=== PATIENT | male | born 1965 | race Caucasian/White ===

== ENCOUNTER 2021-05-28 19:48 | Emergency (ER) | payer OTHER ==
[2021-05-28 19:56] VITALS: RESP 20; TEMP 98.9
[2021-05-28] MEDS ORDERED: CASIRIVIMAB (REGN10933) (EUA) 600 MG, IMDEVIMAB (REGN10987) (EUA) 600 MG in SODIUM CHLO... IVPB ONE (21:00)
[2021-05-28] MEDS ORDERED: SODIUM CHLORIDE 0.9% 50 ML IVPB ONE (21:00)
--- NOTE | 2021-05-28 21:20 | ED ---
General Adult HPI - General Chief complaint: Recheck/Abnormal Lab/Rx Stated complaint: Covid+ wants antibody Time Seen by Provider: 05/28/21 20:02 Source: patient, RN notes reviewed Mode of arrival: ambulatory Limitations: no limitations - History of Present Illness Initial comments: 56-year-old male presents to the emergency room for a chief complaint of Aviles virus. Patient reports that on May 20 he developed symptoms of Aviles virus. He tested positive yesterday. Patient states he has had a cough congestion and fatigue. He states that his mother also tested positive and is getting antibody infusion today. Since patient is not getting better he was hoping he could also have an antibody infusion. He is denying chest pain or shortness of breath.Patient has no other complaints at this time including shortness of breath, chest pain, abdominal pain, nausea or vomiting, headache, or visual changes. - Related Data Allergies Allergy/AdvReac Type Severity Reaction Status Date / Time No Known Allergies Allergy Verified 05/28/21 19:56 Review of Systems ROS Statement: Those systems with pertinent positive or pertinent negative responses have been documented in the HPI. ROS Other: All systems not noted in ROS Statement are negative. Past Medical History Past Medical History: No Reported History History of Any Multi-Drug Resistant Organisms: None Reported Past Surgical History: No Surgical Hx Reported Past Psychological History: No Psychological Hx Reported Smoking Status: Never smoker Past Alcohol Use History: Rare Past Drug Use History: None Reported General Exam Limitations: no limitations General appearance: alert, in no apparent distress Head exam: Present: atraumatic Eye exam: Present: normal appearance, PERRL, EOMI. Absent: scleral icterus, conjunctival injection ENT exam: Present: normal exam, mucous membranes moist Neck exam: Present: normal inspection, full ROM. Absent: tenderness Respiratory exam: Present: normal lung sounds bilaterally. Absent: respiratory distress, wheezes Cardiovascular Exam: Present: regular rate, normal rhythm, normal heart sounds GI/Abdominal exam: Present: soft, normal bowel sounds. Absent: distended, tenderness Neurological exam: Present: alert Course Vital Signs 05/28/21 19:52 Temperature 98.9 F Pulse Rate 108 H Respiratory 20 Rate Blood Pressure 162/88 O2 Sat by Pulse 96 Oximetry Medical Decision Making - Medical Decision Making Vitals are stable. Patient is well-appearing. Patient tested positive. He does not want any additional management aside from antibodies. These were given. Patient will follow up with his doctor. He will return here for any worsening symptoms. Disposition Clinical Impression: COVID-19 Disposition: HOME SELF-CARE Condition: Good Instructions (If sedation given, give patient instructions): Coronavirus Disease 2019 (COVID-19) Additional Instructions: Please follow-up with your doctor in one to 2 days. Return to the emergency room for any worsening symptoms. Is patient prescribed a controlled substance at d/c from ED?: No Referrals: Josias Bello DO [Primary Care Provider] - 1-2 days Time of Disposition: 21:20
[2021-05-28 23:04] VITALS: BP 118/84; PULSE 98
== END 2021-05-28 23:04 | disposition home or self-care (01) ==
LOC: EC 19:48
DX: U07.1 COVID-19 (principal)
CPT/HCPCS: 99283 ×2; 96365; M0243; Q0243

== ENCOUNTER 2021-10-19 07:24 | Emergency (ER) | payer BC ==
[2021-10-19 07:28] VITALS: RESP 18
[2021-10-19] MEDS ORDERED: KETOROLAC 15 MG/ML 1 ML VIAL IVP STA ×2 (07:31→08:14)
[2021-10-19] MEDS ORDERED: SODIUM CHLORIDE 0.9% 1,000 ML IV STA (07:31)
[2021-10-19] MEDS ORDERED: ONDANSETRON 4 MG/2 ML VIAL IVP STA (07:31)
[2021-10-19] MEDS ORDERED: SODIUM CHLORIDE 0.9% 500 ML 500 ML IV STA (07:31)
[2021-10-19] MEDS ORDERED: HYDROmorphone 0.5 MG/0.5 ML SYRINGE IVP STA ×2 (07:31→08:14)
--- NOTE | 2021-10-19 07:44 | ED ---
Abdominal Pain HPI - General Source: patient, RN notes reviewed Mode of arrival: ambulatory Limitations: no limitations <Jose Alejandro Sultana - Last Filed: 10/19/21 09:33> <Nancy Arias - Last Filed: 10/20/21 17:20> - General Chief Complaint: Abdominal Pain Stated Complaint: Kidney stone Time Seen by Provider: 10/19/21 07:31 - History of Present Illness Initial Comments: This is a 56-year-old male presents emergency department complaint of left flank pain. Patient states is a sudden onset of pain this morning. He does admit that he has a history of kidney stones states pain feels very similar. Patient states nothing is really making her pain feel better worse he is very nauseated did have an episode of emesis. No prior abdominal surgeries. Denies chest pain shortness breath. Denies any dysuria or notable hematuria. Patient has NO KNOWN DRUG ALLERGIES denies fevers or chills. (Jose Alejandro Sultana) - Related Data Previous Rx's Medication Instructions Recorded HYDROcodone/APAP 5-325MG [[place] 5] 1 each PO Q6HR PRN #12 tab 10/19/21 Ondansetron Odt [Zofran Odt] 4 mg PO Q8HR PRN #10 tab 10/19/21 Tamsulosin [Flomax] 0.4 mg PO DAILY #7 cap 10/19/21 Allergies Allergy/AdvReac Type Severity Reaction Status Date / Time No Known Allergies Allergy Verified 10/19/21 08:27 Review of Systems ROS Other: All systems not noted in ROS Statement are negative. <Jose Alejandro Sultana - Last Filed: 10/19/21 09:33> ROS Other: All systems not noted in ROS Statement are negative. <Nancy Arias - Last Filed: 10/20/21 17:20> ROS Statement: Those systems with pertinent positive or pertinent negative responses have been documented in the HPI. Past Medical History Past Medical History: No Reported History History of Any Multi-Drug Resistant Organisms: None Reported Past Surgical History: No Surgical Hx Reported Past Psychological History: No Psychological Hx Reported Smoking Status: Never smoker Past Alcohol Use History: Rare Past Drug Use History: None Reported <Jose Alejandro Sultana - Last Filed: 10/19/21 09:33> General Exam Limitations: no limitations General appearance: alert, in no apparent distress Head exam: Present: atraumatic, normocephalic, normal inspection Eye exam: Present: normal appearance, PERRL, EOMI. Absent: scleral icterus, conjunctival injection, periorbital swelling ENT exam: Present: normal exam, normal oropharynx, mucous membranes moist Neck exam: Present: normal inspection, full ROM. Absent: tenderness, meningismus, lymphadenopathy Respiratory exam: Present: normal lung sounds bilaterally. Absent: respiratory distress, wheezes, rales, rhonchi, stridor Cardiovascular Exam: Present: regular rate, normal rhythm, normal heart sounds. Absent: systolic murmur, diastolic murmur, rubs, gallop, clicks GI/Abdominal exam: Present: soft, normal bowel sounds. Absent: distended, tenderness, guarding, rebound, rigid Back exam: Present: CVA tenderness (L). Absent: CVA tenderness (R) Neurological exam: Present: alert Skin exam: Present: warm, dry, intact, normal color. Absent: rash <Jose Alejandro Sultana - Last Filed: 10/19/21 09:33> Course Vital Signs 10/19/21 10/19/21 10/19/21 07:26 09:00 10:25 Temperature 98 F 98.6 F Pulse Rate 67 95 81 Respiratory 18 18 18 Rate Blood Pressure 143/84 128/73 122/78 O2 Sat by Pulse 98 98 98 Oximetry Medical Decision Making - Lab Data Result diagrams: 10/19/21 07:58 10/19/21 07:58 <Jose Alejandro Sultana - Last Filed: 10/19/21 09:33> - Lab Data Result diagrams: 10/19/21 07:58 10/19/21 07:58 <Nancy Arias - Last Filed: 10/20/21 17:20> - Medical Decision Making 56-year-old male presented with left left flank pain. Patient's pain was consistent with prior kidney stone. Patient states he feels greatly improved he did not have any hematuria noted on urinalysis there states he has not had this last time I did recommend CAT scan he states he feels comfortable with discharge and return if symptoms do not improve. Patient was discharged on Flomax, Toradol, felt codeine and Zofran. (Jose Alejandro Sultana) I was available for consultation in the emergency department. The history and p hysical exam were done by the midlevel provider. I was consulted for this patients care. I reviewed the case with the midlevel provider and based on their presentation of the patient, I agree with the assessment, medical decision making and plan of care as documented. Chart was dictated using [employer] dictation software. Attempts were made to correct any dictation errors however some typographical errors may persist. (Nancy Arias) - Lab Data Lab Results 10/19/21 10/19/21 10/19/21 Range/Units 07:58 07:58 08:07 WBC 9.9 (3.8-10.6) k/uL RBC 5.19 (4.30-5.90) m/uL Hgb 15.6 (13.0-17.5) gm/dL Hct 46.8 (39.0-53.0) % MCV 90.3 (80.0-100.0) fL MCH 30.2 (25.0-35.0) pg MCHC 33.4 (31.0-37.0) g/dL RDW 12.4 (11.5-15.5) % Plt Count 220 (150-450) k/uL MPV 6.9 Neutrophils % 79 % Lymphocytes % 14 % Monocytes % 4 % Eosinophils % 1 % Basophils % 0 % Neutrophils # 7.8 H (1.3-7.7) k/uL Lymphocytes # 1.4 (1.0-4.8) k/uL Monocytes # 0.4 (0-1.0) k/uL Eosinophils # 0.1 (0-0.7) k/uL Basophils # 0.0 (0-0.2) k/uL Sodium 139 (137-145) mmol/L Potassium 3.8 (3.5-5.1) mmol/L Chloride 107 (98-107) mmol/L Carbon Dioxide 19 L (22-30) mmol/L Anion Gap 13 mmol/L BUN 20 (9-20) mg/dL Creatinine 1.40 H (0.66-1.25) mg/dL Est GFR (CKD-EPI)AfAm 64 (>60 ml/min/1.73 sqM) Est GFR (CKD-EPI)NonAf 56 (>60 ml/min/1.73 sqM) Glucose 159 H (74-99) mg/dL Calcium 9.7 (8.4-10.2) mg/dL Total Bilirubin 0.8 (0.2-1.3) mg/dL AST 32 (17-59) U/L ALT 32 (4-49) U/L Alkaline Phosphatase 114 (38-126) U/L Total Protein 7.9 (6.3-8.2) g/dL Albumin 4.6 (3.5-5.0) g/dL Amylase 76 (30-110) U/L Lipase 89 (23-300) U/L Urine Color Yellow Urine Appearance Clear (Clear) Urine pH 6.0 (5.0-8.0) Ur Specific [place] 1.024 (1.001-1.035) Urine Protein Negative (Negative) Urine Glucose (UA) Negative (Negative) Urine Ketones 2+ H (Negative) Urine Blood Negative (Negative) Urine Nitrite Negative (Negative) Urine Bilirubin Negative (Negative) Urine Urobilinogen <2.0 (<2.0) mg/dL Ur Leukocyte Esterase Negative (Negative) Disposition Is patient prescribed a controlled substance at d/c from ED?: No Time of Disposition: 09:37 <Jose Alejandro Sultana - Last Filed: 10/19/21 09:33> <Nancy Arias - Last Filed: 10/20/21 17:20> Clinical Impression: Flank pain, Kidney stone on left side Disposition: HOME SELF-CARE Condition: Stable Instructions (If sedation given, give patient instructions): Kidney Stones (ED) Additional Instructions: Please return to emergency department with any worsening of symptoms or any other concerns. Prescriptions: Tamsulosin [Flomax] 0.4 mg PO DAILY #7 cap HYDROcodone/APAP 5-325MG [[place] 5] 1 each PO Q6HR PRN #12 tab PRN Reason: Pain Ondansetron Odt [Zofran Odt] 4 mg PO Q8HR PRN #10 tab PRN Reason: Nausea Referrals: Josias Bello DO [Primary Care Provider] - 1-2 days Good Torres MD [STAFF PHYSICIAN] - 1-2 days
[2021-10-19 08:10] LABS: Basophils % (A) 0 %; Eosinophils # (A) 0.1 k/uL (0-0.7); Eosinophils % (A) 1 %; HCT 46.8 % (39.0-53.0); HGB 15.6 gm/dL (13.0-17.5); Lymphocytes # (A) 1.4 k/uL (1.0-4.8); Lymphocytes % (A) 14 %; MCH 30.2 pg (25.0-35.0); MCHC 33.4 g/dL (31.0-37.0); MCV 90.3 fL (80.0-100.0); Mean Platelet Volume 6.9; Monocytes # (A) 0.4 k/uL (0-1.0); Monocytes % (A) 4 %; Neutrophils # (A) 7.8 k/uL (1.3-7.7); Neutrophils % (A) 79 %; Platelet Count 220 k/uL (150-450); RBC 5.19 m/uL (4.30-5.90); RDW 12.4 % (11.5-15.5); WBC 9.9 k/uL (3.8-10.6)
[2021-10-19 08:22] LABS: Albumin 4.6 g/dL (3.5-5.0); Calcium 9.7 mg/dL (8.4-10.2); Potassium 3.8 mmol/L (3.5-5.1); Total Bilirubin 0.8 mg/dL (0.2-1.3); Total Protein 7.9 g/dL (6.3-8.2)
[2021-10-19 08:24] LABS: Appearance,Urine Clear (Clear); Bilirubin,Urine Negative (Negative); Blood,Urine Negative (Negative); Color,Urine Yellow; Glucose,Urine (UA) Negative (Negative); Ketones,Urine 2+ (Negative); Leukocyte Esterase,Urine Negative (Negative); Nitrite,Urine Negative (Negative); Protein,Urine Negative (Negative); Specific Gravity,Urine 1.024 (1.001-1.035); Urobilinogen,Urine <2.0 mg/dL (<2.0)
--- NOTE | 2021-10-19 08:47 | XR ---
EXAMINATION TYPE: XR KUB DATE OF EXAM: 10/19/2021 COMPARISON: CT dated 06/15/2013 INDICATION: Abdominal pain TECHNIQUE: Single upright view of the abdomen FINDINGS: No free air under the diaphragm. No multiple air fluid levels or signs of acute high-grade small jimmy l obstruction. No definite renal radiopaque calculi identified. Millimetric radiopaque shadows are se en in the left side of the pelvis, likely representing phleboliths however a distal ureteric calculus can't be excluded. Further CT assessment can be considered if clinically required. Dextroscoliosis o f the lumbar spine. IMPRESSION: Left pelvic phleboliths however a distal left ureteric calculus cannot be excluded. No definite radio paque renal calculi. Further CT assessment can be considered if clinically required.
[2021-10-19] MEDS ORDERED: ACET/COD 300 MG/30 MG STARTER PACK 6 TAB BTL PO STA (09:33)
[2021-10-19 12:08] VITALS: BP 122/78; PULSE 81; TEMP 98.6
== END 2021-10-19 10:25 | disposition home or self-care (01) ==
LOC: EC 07:24
DX: N20.0 Calculus of kidney (principal)
CPT/HCPCS: 36415; 80053; 82150; 83690; 85025; 81003; 74018; 99284; 96374; 96375 ×2; 96361; J2405; J1885; J1170